=== PATIENT | male | born 1955 | race African-American/Black ===

== ENCOUNTER 2018-07-03 10:47 | Emergency (ER) | payer OTHER ==
[2018-07-03 11:29] LABS: Mean Corpuscular HGB CONC 28.7 g/dL (32.0-36.0); Mean Corpuscular Hemoglobin 23.2 pg (27.0-31.0); Mean Corpuscular Volume 80.9 fL (78.0-98.0); Mean Platelet Volume 8.8 fL (7.4-10.4); Platelet Count 486 thou/uL (130-400); RBC Distribution Width 13.7 % (11.5-14.5); Red Blood Cell (RBC) Count 5.59 mill/uL (4.70-6.10); White Blood Cell (WBC) Count 24.4 thou/uL (4.8-10.8)
[2018-07-03 11:31] LABS: Bilirubin Negative (Negative); Blood, Urine Trace (Negative); Clarity CLOUDY (Clear); Glucose, Urine (Dipstick) >=1000 mg/dL (Negative); Leukocyte Trace (Negative); Nitrite Positive (Negative); Protein, Urine (Dipstick) 30 mg/dL (Neg-Trace); Specific Gravity, Urine 1.026 (1.002-1.036); pH, Urine 5.5 (5.0-9.0)
[2018-07-03 11:32] LABS: INR-International Normal Ratio 1.1; Prothrombin Time 13.8 SEC (12.0-14.7)
[2018-07-03 11:33] LABS: PTT 29.5 SEC (22.9-36.1)
[2018-07-03 11:33] LABS: Pathc Cast-AUWi Flag 1.01 (0-2.49); RBC/HPF 0-3 HPF (0-3); Squamous Epithelial None Seen HPF (0-3); WBC/HPF 21-50 HPF (0-3)
[2018-07-03 11:35] LABS: Yeast-AUWi Flag 74.1 (0-25.0)
[2018-07-03] MEDS ORDERED: ISOVUE-370 76%-LOCM 1 ML ONE (11:44)
[2018-07-03] MEDS ORDERED: Iopamidol 370 76% 50 ML VIAL FS ONE (11:44)
[2018-07-03 11:49] LABS: Bacteria/HPF 3+ HPF (None Seen); Hyaline Casts/LPF 0-3 HYALINE CAST LPF (0-3 Hyaline); Yeast-All Forms None Seen HPF (None Seen)
--- NOTE | 2018-07-03 11:51 | RAD ---
UPRIGHT PORTABLE CHEST ONE VIEW: History: 63-year-old male with history of weakness and lethargy. FINDINGS: Monitor leads overlie the chest. Patchy alveolar nodular parenchymal changes in the right lower lobe and minimal changes in the left infrahilar region retrocardiac region raising concern for bilateral l ower lobe pneumonia. Upper lung zones are clear. No significant pleural effusion. IMPRESSION: Evidence for bilateral lower lobe pneumonia, worse on the right side. Atherosclerosis of the aorta. POS: [facility]
[2018-07-03 11:52] LABS: Band 19 % (5-11); Lymphocytes 10 % (21-51); MDiff Complete? YES; Monocytes 10 % (0-10); Neutrophil 60 % (42-75); PLT Morphology Comment Appears Increased; RBC Morphology Normal; Reactive Lymphocytes 1 % (0-10)
[2018-07-03 11:57] LABS: ALT (SGPT) 7 U/L (8-55); AST (SGOT) 11 U/L (5-34); Albumin 3.7 g/dL (3.4-4.8); Alkaline Phosphatase 121 U/L (40-150); Anion Gap 23 mmol/L (10-20); BUN (Urea Nitrogen) 31 mg/dL (8.4-25.7); Bilirubin, Total 0.4 mg/dL (0.2-1.2); Calc. Creatinine Clearance 0 mL/min (70-130); Carbon Dioxide 15 mmol/L (23-31); Chloride 92 mmol/L (98-107); Estimated GFR-MDRD 50; Globulin 5.3 g/dL (2.4-3.5); Glucose 341 mg/dL (80-115); Sodium 125 mmol/L (136-145)
[2018-07-03 12:08] LABS: Troponin I 0.014 ng/mL (< 0.028)
[2018-07-03] MEDS ORDERED: niCARdipine 20MG In NaCl 0 MG/0 ML BAG ONE (12:27)
[2018-07-03] MEDS ORDERED: Piperacillin/Tazobactam 3.375 GM VIAL ONE (12:27)
[2018-07-03 13:08] LABS: Base Excess-Venous -8.8 mmol/L (0 (+/- 2.5)); Bicarbonate (HCO3v) 13.8 mmol/L (1.0-85.0); CO2 Tension (PvCO2) 22.9 mmHg (41.0-51.0); Calcium, Ionized 1.09 mmol/L (1.12-1.32); Hemoglobin - Calc 15.6 g/dL (12.0-18.0); O2 Tension (PvO2) 70.8 mmHg (35.0-45.0); Potassium 4.6 mmol/L (3.4-4.7); T. Carbon Dioxide 14.5 mmol/L (1.0-85.0); pH (Venous) 7.388 (7.35-7.45); vO2 Saturation-calc 94.3 % (94-98)
--- NOTE | 2018-07-03 14:09 | CT ---
ABDOMEN AND PELVIC CT SCAN WITH IV CONTRAST: History: 63-year-old male with history of abdominal pain, feeling sick for three weeks, lethargy. One episode of rectal bleeding. FINDINGS: Bilateral lower lobe alveolar parenchymal changes, evidence for bilateral pneumonia. The liver, pancr eas, and spleen appear unremarkable. The gallbladder is very small and contracted without overt galls tones. There is some nodularity up to approximately 1 cm in size involving the left adrenal gland, no nspecific. No renal calculi. Multiple bilateral renal focal circumscribed hypodensities statistically multiple small cysts. Normal appearing appendix. Urinary bladder shows some fairly marked asymmetric urinary bladder wall thickening, nonspecific, but this certainly can be seen with associated cystiti s. A Cabezas catheter is in place. There are numerous scattered small retroperitoneal nodes without carroll dence for advert adenopathy. IMPRESSION: Evidence for bilateral lower lobe pneumonia. Very small contracted gallbladder. Small left adrenal no dule, nonspecific, possibly an adenoma. Asymmetric urinary bladder wall thickening, nonspecific. No C T evidence for acute appendicitis. Numerous small scattered up to approximately 0.7 cm short axis wit hout advert adenopathy. POS: [facility]
[2018-07-03] MEDS ORDERED: Insulin Regular 300 UNITS/3 ML VIAL ONE (14:21)
[2018-07-03 14:39] LABS: Magnesium 2.5 mg/dL (1.6-2.6); Phosphorus 3.2 mg/dL (2.3-4.7)
[2018-07-03] MEDS ORDERED: Insulin Regular 100 units/100 ml in NS IVPB SCH (14:45)
== END 2018-07-03 18:23 | disposition short-term general hospital (02) ==
LOC: ERS 10:47 → EEVIPCON 10:47 → ERS 18:23
DX: E10.10 Type 1 diabetes mellitus with ketoacidosis without coma (principal); D64.9 Anemia, unspecified; E78.5 Hyperlipidemia, unspecified; I10 Essential (primary) hypertension; F32.9 Major depressive disorder, single episode, unspecified; Z79.899 Other long term (current) drug therapy; Z79.84 Long term (current) use of oral hypoglycemic drugs; Z79.82 Long term (current) use of aspirin
CPT/HCPCS: 36415; 36416; 71045; 74177; 80053; 81003; 81015; 82010; 82274; 82330; 82803; 83605; 83735; 84100; 84484; 85025; 85610; 85730; 86850; 86900; 86901; 87040; 87077; 87086; 93005; 96361; 96365; 96366; 96367; 96375; J1815; J2543; J3370; J7050